=== PATIENT | female | born 1980 | race African-American/Black ===

== ENCOUNTER 2019-05-24 08:28 | Emergency (ER) | payer OTHER ==
[~2019-05-24] VITALS: Ht 160 cm; Wt 97.5 kg
--- NOTE | 2019-05-24 08:37 | NUR ---
pt is in room #2a. dr Hutchison evaluated the pt.
[2019-05-24 09:31] VITALS: BP 145/95
--- NOTE | 2019-05-24 09:31 | NUR ---
PT WAS D/C'd TO HOME. D/C INSTRUCTIONS GIVEN TO THE PT.
== END 2019-05-24 09:32 | disposition home or self-care (01) ==
LOC: ER 08:28
DX: S93.601A Unspecified sprain of right foot, initial encounter (principal); V42.5XXA Car driver injured in collision with two- or three-wheeled motor vehicle in traffic accident, initial encounter; Y93.89 Activity, other specified; Y92.89 Other specified places as the place of occurrence of the external cause; Y99.8 Other external cause status
CPT/HCPCS: 73630; A4663